=== PATIENT | female | born 1980 | race Caucasian/White ===

== ENCOUNTER 2016-05-16 09:07 | Emergency (ER) | payer OTHER ==
[~2016-05-16] VITALS: Ht 157.5 cm; Wt 66.2 kg
[2016-05-16 10:59] LABS: microscopic required? YES; urine erythrocyte 3+ (NEGATIVE)
[2016-05-16 12:46] VITALS: BP 134/80
== END 2016-05-16 12:46 | disposition home or self-care (01) ==
LOC: ED 09:07
PROVIDERS: Emergency Medicine
DX: N39.0 Urinary tract infection, site not specified (principal)
CPT/HCPCS: J0696; J1885

== ENCOUNTER 2016-10-13 18:00 | Emergency (ER) | payer OTHER | END 2016-10-13 21:30 | disposition home or self-care (01) | LOC: ED 18:00 | DX: R51 Headache (principal) ==

== ENCOUNTER 2017-11-09 18:07 | Inpatient (IN) | payer OTHER ==
[~2017-11-09] VITALS: Ht 154.9 cm; Wt 64.0 kg
[2017-11-09 18:11] VITALS: Ht 154.9 cm; Wt 64.0 kg
[2017-11-09 18:48] LABS: BASOPHIL % 0.4 % (0-2); PLATELET COUNT 211 x10^3mcL (130-400)
[2017-11-09 18:52] LABS: microscopic required? YES; urine erythrocyte 1+ (NEGATIVE)
[2017-11-09 19:18] LABS: CALCIUM 8.7 mg/dL (8.5-10.1); CARBON DIOXIDE 24.1 mmol/L (21-32); CHLORIDE SERUM 105 mmol/L (98-107); CREATININE SERUM 0.9 mg/dL (0.6-1.0); GFR1 > 60 mL/min; GLUCOSE SERUM 100 mg/dL (74-106); POTASSIUM SERUM 3.5 mmol/L (3.5-5.1); SODIUM SERUM 142 mmol/L (136-145)
[2017-11-09 19:19] LABS: CK-MB < 0.5 ng/mL (0-3.6); CREATINE KINASE 85 U/L (26-192)
[2017-11-09 19:22] LABS: ALBUMIN 3.9 g/dL (3.4-5.0); ALKALINE PHOSPHATASE 61 U/L (46-116); ALT/SGPT 21 U/L (14-59); AST/SGOT 15 U/L (15-37); BILIRUBIN TOTAL 0.48 mg/dL (0.20-1.00); TOTAL PROTEIN, SERUM 7.4 g/dL (6.4-8.2)
[2017-11-09 20:17] LABS: T3 TOTAL 1.08 ng/mL
[2017-11-09 20:35] LABS: AMPHETAMINE QUAL UR NONE DETECTED (See below)
[2017-11-09 20:40] LABS: CHOLESTEROL/HDL RATIO 2.9; MAGNESIUM 1.6 mg/dL (1.8-2.4); PHOSPHOROUS 2.2 mg/dL (2.5-4.9)
[2017-11-09 20:41] VITALS: BP 113/68
[2017-11-09 20:52] LABS: FREE T4 0.97 ng/dL (0.76-1.46); FREE THYROXINE INDEX 2.5 ug/dL (1.4-4.5); T4(THYROXINE) 8.2 ug/dL (4.7-13.3)
[2017-11-10 05:26] VITALS: BP 106/66
[2017-11-10 06:34] LABS: BASOPHIL % 0.1 % (0-2); PLATELET COUNT 197 x10^3mcL (130-400); RED CELL DISTRIBUTION WIDTH 14.1 % (11.5-14.5)
[2017-11-10 06:53] LABS: CALCIUM 8.4 mg/dL (8.5-10.1); CARBON DIOXIDE 24.5 mmol/L (21-32); CHLORIDE SERUM 107 mmol/L (98-107); CREATININE SERUM 0.7 mg/dL (0.6-1.0); GFR1 > 60 mL/min; GLUCOSE SERUM 118 mg/dL (74-106); MAGNESIUM 1.9 mg/dL (1.8-2.4); PHOSPHOROUS 2.8 mg/dL (2.5-4.9); SODIUM SERUM 140 mmol/L (136-145)
[2017-11-10 07:00] LABS: POTASSIUM SERUM 2.9 mmol/L (3.5-5.1)
[2017-11-10 07:55] VITALS: BP 105/64
[2017-11-10 16:54] VITALS: BP 118/85
[2017-11-10 17:39] VITALS: BP 128/78
[2017-11-10 21:05] VITALS: BP 126/88
[2017-11-11 05:18] VITALS: BP 112/74
[2017-11-11 06:53] LABS: BASOPHIL % 0.4 % (0-2); PLATELET COUNT 200 x10^3mcL (130-400)
[2017-11-11 06:54] LABS: RED CELL DISTRIBUTION WIDTH 14.7 % (11.5-14.5)
[2017-11-11 07:08] LABS: CALCIUM 8.4 mg/dL (8.5-10.1); CARBON DIOXIDE 24.2 mmol/L (21-32); CHLORIDE SERUM 107 mmol/L (98-107); CREATININE SERUM 0.6 mg/dL (0.6-1.0); GFR1 > 60 mL/min; GLUCOSE SERUM 90 mg/dL (74-106); MAGNESIUM 1.7 mg/dL (1.8-2.4); PHOSPHOROUS 3.2 mg/dL (2.5-4.9); POTASSIUM SERUM 3.5 mmol/L (3.5-5.1); SODIUM SERUM 139 mmol/L (136-145)
[2017-11-11 08:52] VITALS: BP 121/79
[2017-11-11] MEDS ORDERED: ACYCLOVIR400 MG PO (12:15)
[2017-11-11 13:29] VITALS: BP 121/79
[2017-11-11 13:44] VITALS: BP 123/80
== END 2017-11-11 15:07 | disposition home or self-care (01) | DRG 113 ==
LOC: ED 18:07 → MU 19:03 → DU 11-10 19:12
PROVIDERS: Emergency Medicine; Family Medicine
DX: J11.1 Influenza due to unidentified influenza virus with other respiratory manifestations (principal); N17.0 Acute kidney failure with tubular necrosis; E83.39 Other disorders of phosphorus metabolism; G90.9 Disorder of the autonomic nervous system, unspecified; I10 Essential (primary) hypertension; M79.1 Myalgia; E78.5 Hyperlipidemia, unspecified; E83.42 Hypomagnesemia; Z68.27 Body mass index [BMI] 27.0-27.9, adult
CPT/HCPCS: 36600; 83880; 84439; 85378; 87804; J0456; J0696; J1885; J1956; J2550; J3480; J7030; J7050; Q0092; Q9967

== ENCOUNTER 2019-11-28 21:04 | Emergency (ER) | payer OTHER ==
[~2019-11-28] VITALS: Ht 160 cm; Wt 67.1 kg
[~2019-11-28 21:04] MED LIST: ACYCLOVIR400 MG PO
[2019-11-28 21:10] VITALS: Ht 160 cm; Wt 67.1 kg
[2019-11-28 22:52] LABS: BASOPHIL % 0.3 % (0-2); PLATELET COUNT 258 x10^3mcL (130-400)
[2019-11-28 23:01] LABS: AMPHETAMINE QUAL UR NONE DETECTED (See below)
[2019-11-28 23:36] LABS: FREE T4 1.24 ng/dL (0.76-1.46); FREE THYROXINE INDEX 2.6 ug/dL (1.4-4.5)
[2019-11-28 23:40] LABS: CARBON DIOXIDE 24.8 mmol/L (21-32); CHLORIDE SERUM 102 mmol/L (98-107); CREATININE SERUM 0.9 mg/dL (0.6-1.0); GFR1 > 60 mL/min; GLUCOSE SERUM 103 mg/dL (74-106); POTASSIUM SERUM 3.5 mmol/L (3.5-5.1); SODIUM SERUM 138 mmol/L (136-145)
[2019-11-28 23:44] LABS: ALKALINE PHOSPHATASE 60 U/L (46-116); ALT/SGPT 22 U/L (14-59); AST/SGOT 17 U/L (15-37); BILIRUBIN TOTAL 0.5 mg/dL (0.20-1.00); MAGNESIUM 1.9 mg/dL (1.8-2.4); TOTAL PROTEIN, SERUM 7.8 g/dL (6.4-8.2)
[2019-11-29 00:18] LABS: T3 TOTAL 1.41 ng/mL
[2019-11-29 01:25] VITALS: BP 138/86
== END 2019-11-29 01:25 | disposition home or self-care (01) ==
LOC: ED 21:04
PROVIDERS: Emergency Medicine
DX: R55 Syncope and collapse (principal); R00.2 Palpitations
CPT/HCPCS: 84439; J7030; Q0092

== ENCOUNTER 2019-11-29 15:03 | Emergency (ER) | payer OTHER ==
[~2019-11-29] VITALS: Ht 167.6 cm; Wt 81.6 kg
[2019-11-29 15:05] VITALS: Ht 167.6 cm; Wt 81.6 kg
[2019-11-29 16:27] LABS: BASOPHIL % 0.4 % (0-2); PLATELET COUNT 246 x10^3mcL (130-400); RED CELL DISTRIBUTION WIDTH 14.3 % (11.5-14.5)
[2019-11-29 16:36] LABS: CALCIUM 8.9 mg/dL (8.5-10.1); CARBON DIOXIDE 27.2 mmol/L (21-32); CHLORIDE SERUM 104 mmol/L (98-107); CREATININE SERUM 0.8 mg/dL (0.6-1.0); GFR1 > 60 mL/min; GLUCOSE SERUM 102 mg/dL (74-106); POTASSIUM SERUM 3.7 mmol/L (3.5-5.1); SODIUM SERUM 138 mmol/L (136-145)
[2019-11-29 16:41] LABS: ALBUMIN 3.9 g/dL (3.4-5.0); ALKALINE PHOSPHATASE 54 U/L (46-116); ALT/SGPT 21 U/L (14-59); AST/SGOT 16 U/L (15-37); BILIRUBIN TOTAL 0.4 mg/dL (0.20-1.00); TOTAL PROTEIN, SERUM 7.5 g/dL (6.4-8.2)
[2019-11-29 20:24] VITALS: BP 145/85
== END 2019-11-29 20:15 | disposition home or self-care (01) ==
LOC: ED 15:03
PROVIDERS: Emergency Medicine
DX: F43.20 Adjustment disorder, unspecified (principal); R06.4 Hyperventilation; R55 Syncope and collapse
CPT/HCPCS: 82962; J7030; Q0092

== ENCOUNTER 2020-03-23 15:41 | Emergency (ER) | payer OTHER ==
[~2020-03-23] VITALS: Ht 160 cm; Wt 68.0 kg
[2020-03-23 15:55] VITALS: Ht 160 cm; Wt 68.0 kg
[2020-03-23 17:25] LABS: CALCIUM 9.1 mg/dL (8.5-10.1); CARBON DIOXIDE 27.7 mmol/L (21-32); CHLORIDE SERUM 100 mmol/L (98-107); CREATININE SERUM 0.7 mg/dL (0.6-1.0); GFR1 > 60 mL/min; GLUCOSE SERUM 113 mg/dL (74-106); POTASSIUM SERUM 3.4 mmol/L (3.5-5.1); SODIUM SERUM 140 mmol/L (136-145)
[2020-03-23 17:30] LABS: ALBUMIN 3.9 g/dL (3.4-5.0); ALKALINE PHOSPHATASE 58 U/L (46-116); ALT/SGPT 29 U/L (14-59); AST/SGOT 17 U/L (15-37); BILIRUBIN TOTAL 0.21 mg/dL (0.20-1.00); TOTAL PROTEIN, SERUM 7.9 g/dL (6.4-8.2)
[2020-03-23 18:50] LABS: PLATELET COUNT 200 x10^3mcL (179-408); RED CELL DISTRIBUTION WIDTH 14.3 % (12.3-17.7)
[2020-03-23 19:44] LABS: ATYPICAL LYMPH 5 %; BAND NEUTROPHIL 3 % (0-10); MONOCYTE 10 % (0-7); SEGMENTED NEUTROPHILS 51 % (37-75)
[2020-03-23 19:45] LABS: PLATELET MORPHOLOGY PLATELETS NORMAL; rbc morphology (normal/abnorm) NORMAL (NORMAL)
[2020-03-23 20:20] VITALS: BP 120/82
== END 2020-03-23 20:40 | disposition home or self-care (01) ==
LOC: ED 15:41
PROVIDERS: Emergency Medicine
DX: R07.89 Other chest pain (principal); R00.2 Palpitations; R53.83 Other fatigue
CPT/HCPCS: 85378